=== PATIENT | female | born 1975 ===

== ENCOUNTER 2017-11-10 08:54 | Outpatient (CLI) | payer OTHER | END 2017-11-10 09:03 | disposition home or self-care (01) | LOC: SONOGRAMA 08:54 | DX: E04.1 Nontoxic single thyroid nodule (principal) ==

== ENCOUNTER 2018-03-05 10:58 | Outpatient (CLI) | payer OTHER | END 2018-03-05 11:02 | disposition home or self-care (01) | LOC: SONOGRAMA 10:58 | DX: E04.1 Nontoxic single thyroid nodule (principal) ==